=== PATIENT | male | born 1980 | race Two or more races ===

== ENCOUNTER 2024-10-09 15:51 | Emergency (ER) | payer OTHER ==
[~2024-10-09] VITALS: Ht 162.6 cm; Wt 92.5 kg
[2024-10-09] MEDS ORDERED: IRBESARTAN150 MG PO (16:11)
[2024-10-09] MEDS ORDERED: KETOROLAC TROMETHAMINE 30 MG VIAL IM STA (16:49)
[2024-10-09] MEDS ORDERED: KETOROLAC TROMETHAMINE 30 MG VIAL ONE (17:09)
[2024-10-09 18:00] LABS: HEMATOCRIT 44.6 % (39.0-48.0); HEMOGLOBIN 15.5 g/dL (13-16.00); MEAN CORPUSCULAR HEMOGLOBIN 30.1 pg (27.00-32.0); MEAN CORPUSCULAR HGB CONC 34.6 g/dl (32.0-36.0); PLATELET COUNT 241 K/uL (150-450); RED BLOOD COUNT 5.13 M/uL (4.00-6.00); RED CELL DISTRIBUTION WIDTH 14.1 % (11.5-14.5)
== END 2024-10-09 18:31 | disposition home or self-care (01) ==
LOC: ER 15:52
PROVIDERS: General Practice
DX: J06.9 Acute upper respiratory infection, unspecified (principal); Z20.822 Contact with and (suspected) exposure to COVID-19